=== PATIENT | female | born 1960 | race Caucasian/White ===

== ENCOUNTER 2019-01-26 10:01 | Day surgery (SDC) | payer OTHER ==
[~2019-01-26] VITALS: Ht 154.9 cm; Wt 64.3 kg
[~2019-01-26 10:01] MED LIST: ASPI325EC PO; CARBAMAZEPINE100 MG PO; GUAI600T33 PO; LISI20 PO; ONDA4ODT MM; OXYB5 PO; OXYC5 PO; ZONI100 PO
--- NOTE | 2019-01-26 11:13 | NUR ---
PATIENT GAVE PERMISSION FOR ME TO CARE FOR HER TODAY 01/26/19. History, Chart, Medications and Allergies reviewed before start of procedure.Patient confirms NPO status and agrees with scheduled surgery. Lungs clear T/O to Auscultation.
--- NOTE | 2019-01-26 11:13 | NUR ---
STUDENT NURSE ASSISTING WITH PRE PROCEDURE CARE. AGREE WITH HER CHARTING AND CARE
--- NOTE | 2019-01-26 11:53 | NUR ---
01/26/19 1153 Snow Rai PATIENT DETERMINED TO BE ASA APPROPRIATE FOR PROPOFOL SEDATION PRIOR TO START OF PROCEDURE BY DR. PARK. 3-LEAD EKG REVIEWED WITH PHYSICIAN PRIOR TO START OF PROCEDURE. PATIENT CONFIRMS NPO STATUS AND AGREES WITH SCHEDULED PROCEDURE. History, Chart, Medications and Allergies reviewed before start of procedure. MONITOR INTACT WITH CONTINUOUS PULSE OXIMETRY AND INTERMITTENT BP. O2 VIA N/C INTACT THROUGHOUT SEDATION/PROCEDURE VIA POM MASK, 10 L. HURRICAINE SPRAY TO OROPHARYX, Bite Block Placed IMMEDIATELY PREPROCEDURE.
--- NOTE | 2019-01-26 12:40 | NUR ---
Discharge instructions reviewed with patient. Patient verbalizes understanding. Copy given to patient to take home. Discharged via wheelchair to private car for ride home. SCRIPT CALLED INTO [facility] IN [place]. BOTH PATEINT AND SPOUSE DENY COCERNS RELATED TO DISCHARGE
== END 2019-01-26 23:10 | disposition home or self-care (01) ==
LOC: ORSCMMR 10:01 → ORD 11:00 → ORSCMMR 23:10
PROVIDERS: Internal Medicine Gastroenterology
PROC: 0DB98ZX Excision of Duodenum, Via Natural or Artificial Opening Endoscopic, Diagnostic (ICD-10-PCS; principal; 2019-01-26 11:00)
PROC: 0DB68ZX Excision of Stomach, Via Natural or Artificial Opening Endoscopic, Diagnostic (ICD-10-PCS; principal; 2019-01-26 11:00)
PROC: 0DB58ZX Excision of Esophagus, Via Natural or Artificial Opening Endoscopic, Diagnostic (ICD-10-PCS; principal; 2019-01-26 11:00)
PROC: 0DB48ZX Excision of Esophagogastric Junction, Via Natural or Artificial Opening Endoscopic, Diagnostic (ICD-10-PCS; principal; 2019-01-26 11:00)
DX: R11.2 Nausea with vomiting, unspecified (principal); B37.81 Candidal esophagitis; K44.9 Diaphragmatic hernia without obstruction or gangrene; K29.70 Gastritis, unspecified, without bleeding; K29.80 Duodenitis without bleeding; R10.31 Right lower quadrant pain; G40.909 Epilepsy, unspecified, not intractable, without status epilepticus; I10 Essential (primary) hypertension; Z79.899 Other long term (current) drug therapy
CPT/HCPCS: 88305; 88312; 88342; J2704; J7120

== ENCOUNTER → 2019-04-21 | Outpatient (CLI) | payer OTHER ==
[2019-04-22 13:50] LABS: Stool Occult Bld Immuno 1 Negative (NEGATIVE)
== END ==
LOC: LAB 17:00 → LAB SHORT 17:00
PROVIDERS: Nurse Practitioner Family
DX: Z12.11 Encounter for screening for malignant neoplasm of colon (principal)
CPT/HCPCS: G0328

== ENCOUNTER 2019-06-25 09:00 | Day surgery (SDC) | payer OTHER ==
[~2019-06-25] VITALS: Ht 154.9 cm; Wt 60.9 kg
--- NOTE | 2019-06-25 09:34 | NUR ---
History, Chart, Medications and Allergies reviewed before start of procedure. Lungs clear T/O to Auscultation. Patient confirms NPO status and agrees with scheduled surgery. Pre-Op teaching done. Pt verbalizes understanding. Patient States Post-Procedure ride home has been arranged.
--- NOTE | 2019-06-25 10:18 | NUR ---
06/25/19 1018 Wing Crow PATIENT DETERMINED TO BE ASA APPROPRIATE FOR PROPOFOL SEDATION PRIOR TO START OF PROCEDURE BY . 3-LEAD EKG REVIEWED WITH PHYSICIAN PRIOR TO START OF PROCEDURE.PATIENT CONFIRMS NPO STATUS AND AGREES WITH SCHEDULED PROCEDURE.History, Chart, Medications and Allergies reviewed before start of procedure.MONITOR INTACT WITH CONTINUOUS PULSE OXIMETRY AND INTERMITTENT BP.O2 VIA N/C INTACT THROUGHOUT SEDATION/PROCEDURE.HURRICAINE SPRAY TO OROPHARYX.Bite Block Placed
--- NOTE | 2019-06-25 10:54 | NUR ---
Patient up to Ambulate independently. Gait steady. Discharge instructions reviewed with patient. Patient verbalizes understanding. Copy given to patient to take home. Patient States Post-Procedure ride home has been arranged. Discharged via wheelchair to private car for ride home.
== END 2019-06-25 11:04 | disposition home or self-care (01) ==
LOC: ORSCMMR 09:00 → ORD 10:00 → ORSCMMR 11:04
PROVIDERS: Internal Medicine Gastroenterology
PROC: 0DB68ZX Excision of Stomach, Via Natural or Artificial Opening Endoscopic, Diagnostic (ICD-10-PCS; principal; 2019-06-25 10:00)
PROC: 0DB48ZX Excision of Esophagogastric Junction, Via Natural or Artificial Opening Endoscopic, Diagnostic (ICD-10-PCS; principal; 2019-06-25 10:00)
PROC: 0DB58ZX Excision of Esophagus, Via Natural or Artificial Opening Endoscopic, Diagnostic (ICD-10-PCS; principal; 2019-06-25 10:00)
DX: B37.81 Candidal esophagitis (principal); R13.14 Dysphagia, pharyngoesophageal phase; R10.13 Epigastric pain; K21.9 Gastro-esophageal reflux disease without esophagitis; K44.9 Diaphragmatic hernia without obstruction or gangrene; K29.70 Gastritis, unspecified, without bleeding; I10 Essential (primary) hypertension; K31.84 Gastroparesis; G40.909 Epilepsy, unspecified, not intractable, without status epilepticus; Z79.899 Other long term (current) drug therapy
CPT/HCPCS: 88305; 88342; J2704; J7120

== ENCOUNTER 2019-08-18 08:46 | Observation (INO) | payer OTHER ==
[~2019-08-18] VITALS: Ht 152.4 cm; Wt 61.5 kg
[2019-08-18] MEDS ORDERED: FISH OIL 1,001000 MG PO (09:09)
[2019-08-18] MEDS ORDERED: Zantac150 MG (09:10)
[2019-08-18] MEDS ORDERED: Calcium Magnes1 EAC1 PO (09:10)
[2019-08-18] MEDS ORDERED: FAMO40 PO (09:11)
[2019-08-18] MEDS ORDERED: VITAMIN D31000 UNI3 PO (09:13)
[2019-08-18] MEDS ORDERED: ATOR20 PO (09:14)
[2019-08-18] MEDS ORDERED: Isosorbide Mono30 MG PO (09:15)
[2019-08-18] MEDS ORDERED: ASPI81CH PO ×2 (09:17→09:18)
--- NOTE | 2019-08-18 11:02 | NUR ---
PT TO BENEFITS COORDINATOR FOR CORONARY ANGIOGRAM. VSS. NAJERA.
--- NOTE | 2019-08-18 13:04 | NUR ---
PT BACK TO RECOVERY RM WITH R RADIAL TR BAND IN PLACE, 11CC OF AIR IN BAND- PLACED AT 1240. R FEMORAL [address] WITH ART LINE, TO BE PULLED ONCE ACT IS BELOW 180. VSS. NADN. BOTH SITES CLEAR. NO BLEEDING OR HEMATOMA NOTED. CALL LIGHT WITHIN REACH.
--- NOTE | 2019-08-18 14:10 | NUR ---
ACT OBTAINED FROM R FEMORAL SHEATH. CLOTTING TIME READ 208. WILL CONTINUE TO MONITOR PT AND RECHECK AGAIN BEFORE PULLING SHEATH. PT R RADIAL TR BAND REMAINS CLEAR. NO BLEEDING OR HEMATOMA NOTED FROM BOTH. PT RESTING COMFORTABLY, NADN. VSS. CALL LIGHT WITHIN REACH. FAMILY AT BEDSIDE
--- NOTE | 2019-08-18 14:38 | NUR ---
SBAR/REPORT GIVEN TO MARIIA CHANDRA PCU. PT RESTING COMFORTABLY. SITES REMAIN CLEAR. VSS. CALL LIGHT WITHIN REACH. FAMILY AT BEDSIDE.
--- NOTE | 2019-08-18 15:25 | NUR ---
R RADIAL REMAINS CLEAR. R FEMORAL SHEATH REMAINS IN PLACE. LAST ACT WAS 197 @ 1525. PT ASSISTED WITH BEDPAN. APPROX 200CC OF CLEAR URINE NOTED.
--- NOTE | 2019-08-18 16:38 | NUR ---
PT R FEMORAL SHEATH REMOVED. HEMOSTASIS AT 1635. PT TOLERATES WELL. R FEMORAL SITE CLEAR. NO BLEEDING OR HEMATOMA IN PLACE. VSS. NADN. R RADIAL TR BAND CLEAR.
--- NOTE | 2019-08-18 17:44 | NUR ---
PT ARRIVED VIA STRETCHER FROM DREDGE MATE; TRANSFERED W/ SLIDER SHEET; PT A&O; SPOUSE AND SON AT BEDSIDE; PT PLEASANT AND COMPLIANT W/ CARE; TR BAND TO R RADIAL SITE, SLIGHT DRIED BLOOD; FINGERS WARM AND O2 SATS>94 ON DIGITS; R FEMORAL SMALL DRIED BLOOD; VSS; PT ON RA; LUNG SOUNDS CLEAR T/O; CALL LIGHT IN REACH; BED IN LOWEST POSITION; WILL CONTINUE TO MONITOR UNTIL HAND OFF TO NOC RN.
--- NOTE | 2019-08-18 20:30 | NUR ---
TR BAND PRESENT TO THE RIGHT RADIAL SITE, PT DENIES PAIN/NUMNESS OR TINGLING TO EXTREMITY, CAP REFILL WNL, SMALL AMOUNT OF BRUISING NOTED AT THE PROXIMAL END OFTHE TR BAND, NO SIGN OF HEMATOMA, 2 ML OF AIR RELEASED AT A TIME OVER AN EXTENDED PERIOD TOTALING 6 ML'S. DAY SHIFT HAD REPORTED REMOVING 5 ML'S. ARM BOARD IS IN PLACE. PT EDUCATION PROVIDED AT THIS TIME. RIGHT GROIN SITE DRSG HAS A SMALL AMOUNT OF DRY RED DRAINAGE PRESENT, NO CHANGE PER DAY SHIFT RN AT [place], NO S/S HEMATOMA, WCTM , CIRC WNL.
--- NOTE | 2019-08-18 21:30 | NUR ---
TR BAND REMOVAL TR BAND WAS REMOVED WNL AT THIS TIME. NO S/S OF A HEMATOMA OR BLEEDING PRESENT. SMALL AMOUNT OF BRUISING, NO CHANGES NOTED FROM PREVIOUS ASSESSMENT. CIRC REMAINS WNL, PT DENIES PAIN, NUMBNESS OR TINGLING TO EXTREMITY. TEGADERM DRESSING WAS PLACED, ARM BOARD WAS ALSO REPLACED, PT EDUCATION PROVIDED. PT WAS ASSISTED OOB AT THIS TIME TO THE BSC, PT TOLERATED WITH NO PROBLEMS, GROIN SITE REMAINS UNCHANGED WITH MOVEMENT, PT REPORTS MILD TENDERNESS WITH MOVEMENT. DRSG INTACT. WCTM, CALL LIGHT IN REACH. VSS
--- NOTE | 2019-08-19 06:27 | NUR ---
SUMMARY NO ACUTE CHANGES THROUGH THE NIGHT. PT HAS BEEN SLEPT WITH NO PROBLEMS. BOTH THE RIGHT RADIAL AND R GROIN SITE REMAIN UNCHANGED FROM PREVIOUS ASSESSMENT. DRSG'S REMAIN DRY & INTACT. PT IS TOLERATING TRANSFERS TO BSC WITH NO PROBLEMS. VOIDING WNL. TOLERATING PO INTAKE. VSS. ON ROOM AIR. CALL LIGHT IN REACH
[2019-08-19] MEDS ORDERED: CLOP75 PO (10:04)
--- NOTE | 2019-08-19 11:19 | NUR ---
DISCHARGE INSTRUCTIONS GIVEN TO PT AND FAMILY. PROVIDED EDUCATION ON NEW MEDICATION PLAVIX AND HOME CATH SITE CARE. ALL QUESTIONS ANSWERED. BELONGINGS GATHERED AND GIVEN TO PT. PT WAS ESCORTED OUT VIA W/C BY LUMA SOSA.
== END 2019-08-19 11:32 | disposition home or self-care (01) ==
LOC: MHTC 08:46 → PCU 13:32
PROVIDERS: ADMIT Internal Medicine Interventional Cardiology
PROC: 4A023N7 Measurement of Cardiac Sampling and Pressure, Left Heart, Percutaneous Approach (ICD-10-PCS; principal; 2019-08-18)
PROC: B2111ZZ Fluoroscopy of Multiple Coronary Arteries using Low Osmolar Contrast (ICD-10-PCS; principal; 2019-08-18)
DX: I25.119 Atherosclerotic heart disease of native coronary artery with unspecified angina pectoris (principal); I10 Essential (primary) hypertension; G40.909 Epilepsy, unspecified, not intractable, without status epilepticus; J38.01 Paralysis of vocal cords and larynx, unilateral; Z90.710 Acquired absence of both cervix and uterus; Z96.652 Presence of left artificial knee joint; Z79.82 Long term (current) use of aspirin; Z79.899 Other long term (current) drug therapy; Z88.0 Allergy status to penicillin
CPT/HCPCS: 76937; 85347; 92978; 93454; 96372; 99152; 99153; C1725; C1753; C1769; C1874; C1887; C1894; C9600; C9604; G0378; J1644; J2250; J3010; J7030; Q9967

== ENCOUNTER → 2021-01-16 | Outpatient (CLI) | payer OTHER ==
[~2021-01-16] MED LIST changes: +ASPI81CH PO; +ATOR20 PO; +CLOP75 PO; +Calcium Magnes1 EAC1 PO; +FAMO40 PO; +FISH OIL 1,001000 MG PO; +Isosorbide Mono30 MG PO; +VITAMIN D31000 UNI3 PO; +Zantac150 MG
[2021-01-20 09:57] LABS: Stool Occult Bld Immuno 1 Negative (NEGATIVE)
== END | disposition home or self-care (01) ==
LOC: LAB SHORT 17:15
PROVIDERS: Student in an Organized Health Care Education/Training Program
DX: Z12.11 Encounter for screening for malignant neoplasm of colon (principal)
CPT/HCPCS: G0328

== ENCOUNTER 2021-03-10 09:27 | Day surgery (SDC) | payer OTHER ==
[~2021-03-10] VITALS: Ht 152.4 cm; Wt 64.5 kg
[~2021-03-10 09:27] MED LIST changes: +Acetaminophen325 M1 PO; +VITAMIN D310 MC4 PO; -VITAMIN D31000 UNI3 PO
--- NOTE | 2021-03-10 11:24 | NUR ---
PATIENT UP OOB WALKING IN THE [place]. WAITING TO GO TO THE CATHLAB PRIOR TO PROCEDURE.
--- NOTE | 2021-03-10 12:09 | NUR ---
PATIENTS' AT THE BEDSIDE.
--- NOTE | 2021-03-10 13:21 | NUR ---
1305 PATIENT WALKED INTO THE LAB FOR PROCEDURE.
--- NOTE | 2021-03-10 14:27 | NUR ---
DR. TEAGUE PREVIOUSLY TO BEDSIDE TO DISCUSS RESULTS WITH PT AND . PT REPOSITIONED ON GURNEY WITH HOB RAISED TO 15 DEGREES. RIGHT GROIN SITE SOFT NON TENDER WITH NO ACTIVE BLEEDING OR OOZING. TEGADERM C/D/I. WILL CONTINUE TO MONITOR.
--- NOTE | 2021-03-10 14:50 | NUR ---
RIGHT GROIN SITE REMAINS SOFT NON TENDER WITH NO BLEEDING OR OOZING. HOB RAISED TO 30 DEGREES, WILL CONTINUE TO MONITOR. BILATERAL DP/PT 2+ PULSES PRESENT SKIN P/W/D. AT BEDSIDE, CALL LIGHT IN REACH.
--- NOTE | 2021-03-10 15:04 | NUR ---
PT ASSISTED ON AND OFF BEDPAN, RIGHT GROIN SITE REMAINS STABLE.
--- NOTE | 2021-03-10 16:33 | NUR ---
16[facility]. [facility]UE REVEISED HIS ORDER FOR 4 HOURS OF BEDREST TO 3 HOURS OF BEDREST. RIGHT GROIN STABLE. PATIENT HAD A BOWEL MOVEMENT AND VOIDED. GROIN STABLE.
--- NOTE | 2021-03-10 16:43 | NUR ---
PATIENT PIV TO THE LEFT HAND REMVOED AND PRESSURE DRESSING APPLIED.
--- NOTE | 2021-03-10 16:44 | NUR ---
REVEIWED WITH THE DISCHARGE INSTRUCTIONS AND ALL SIGNED. NO FURTHER QUESTIONS. COPIES GIVEN IN PATIENT FOLDER.
--- NOTE | 2021-03-10 17:05 | NUR ---
PATIENT FULLY DRESSED AND ALL BELONGINGS GATHERED. OUT TO GET CAR TO MEET AT THE [place] ENTRANCE. PATIENT DISCHARGED VIA WHEELCHAIR WITH DISCHARGE INSTRUCTIONS AND FOLLOW UP APPOINTMENT IN HAND.
== END 2021-03-10 17:15 | disposition home or self-care (01) ==
LOC: MHTC 09:27
PROC: B2111ZZ Fluoroscopy of Multiple Coronary Arteries using Low Osmolar Contrast (ICD-10-PCS; principal; 2021-03-10)
DX: T82.855A Stenosis of coronary artery stent, initial encounter (principal); I25.118 Atherosclerotic heart disease of native coronary artery with other forms of angina pectoris; I10 Essential (primary) hypertension; Z88.0 Allergy status to penicillin; Z79.82 Long term (current) use of aspirin; Z79.899 Other long term (current) drug therapy
CPT/HCPCS: 76937; 93454; 99152; A9270; C1760; C1769; C1894; J0360; J1644; J2250; J3010; J7030; J7050; Q9967

== ENCOUNTER → 2021-10-10 | Outpatient (CLI) | payer OTHER | END | disposition home or self-care (01) | LOC: LAB SHORT 15:40 | DX: R30.0 Dysuria (principal) | CPT/HCPCS: 87086 ==

== ENCOUNTER → 2024-04-20 | Outpatient (CLI) | payer OTHER ==
[2024-04-20 14:31] LABS: Source, Urine Clean Catch
[2024-04-20 15:22] LABS: Appearance, Urine Hazy (Clear); Bilirubin, Urine Neg (Neg); Blood, Urine 1+ (Neg); Glucose Qualitative, Urine 4+ (Neg); Ketones, Urine Neg (Neg); Leukocyte Esterase, Urine 3+ (Neg); Nitrite, Urine Neg (Neg); Protein, Urine Neg (Neg); Urobilinogen, Urine NORM (Normal)
[2024-04-20 15:35] LABS: Bacteria Many /hpf; Color, Urine Pale Yellow (P-Yellow); Red Blood Cells, Urine 0-2 /hpf (0-2); Squamous Epithelial Cells Few /hpf (Few); White Blood Cells, Urine 50-100 /hpf (0-5)
[2024-04-20 15:36] LABS: Amorphous Light (0-Heavy)
== END | disposition home or self-care (01) ==
LOC: LAB SHORT 14:29 → LAB 14:29
PROVIDERS: Student in an Organized Health Care Education/Training Program
DX: R33.9 Retention of urine, unspecified (principal)
CPT/HCPCS: 81001; 87077; 87086; 87186

== ENCOUNTER → 2024-08-04 | Outpatient (CLI) | payer OTHER ==
[~2024-08-04] MED LIST changes: +CALCIUM-MAGNES1 EAC9; +CENTRUM WOMEN1 EAC2; +ESTRADIOL 0.01%; +FARXIGA5 MG PO; +IBUP200; +Loratadine10 MG; +NITR.4SL SL; +PANTOPRAZOLE SO2010 PO; +ROSUVASTATIN CAL5 MG PO; +Vitamin D1000 UNI1 PO
[2024-08-04 14:28] LABS: Source, Urine Clean Catch
[2024-08-04 16:39] LABS: Appearance, Urine Clear (Clear); Bilirubin, Urine Neg (Neg); Blood, Urine Neg (Neg); Glucose Qualitative, Urine 3+ (Neg); Ketones, Urine Neg (Neg); Leukocyte Esterase, Urine 1+ (Neg); Nitrite, Urine Neg (Neg); Protein, Urine Neg (Neg); Specific Gravity, Urine 1.005 (1.003-1.022); Urobilinogen, Urine NORM (Normal)
[2024-08-04 16:48] LABS: Color, Urine Pale Yellow (P-Yellow)
[2024-08-04 16:50] LABS: Bacteria Many /hpf; Red Blood Cells, Urine 0-2 /hpf (0-2); Squamous Epithelial Cells Rare /hpf (Few); Transitional Epithelial Cells Rare /hpf (0-Rare)
== END ==
LOC: LAB SHORT 14:26 → LAB 14:26
PROVIDERS: Student in an Organized Health Care Education/Training Program
DX: R33.9 Retention of urine, unspecified (principal)
CPT/HCPCS: 81001; 87077; 87086; 87186

== ENCOUNTER 2024-08-11 06:10 | Day surgery (SDC) | payer OTHER ==
[~2024-08-11] VITALS: Ht 152.4 cm; Wt 61.0 kg
[~2024-08-11 06:10] MED LIST changes: +Balanced Salt Epinephrine Irrigation Solution 500 mL IR SCH; -CALCIUM-MAGNES1 EAC9; -CENTRUM WOMEN1 EAC2; -ESTRADIOL 0.01%; -FARXIGA5 MG PO; -IBUP200; +Lidocaine HCl/Pf 1% 5 ML VIAL XX SCH; -Loratadine10 MG; +Moxifloxacin HCL 0.5 MG/0.1 ML 0.4MLSYR LEFTEYE SCH; -NITR.4SL SL; -PANTOPRAZOLE SO2010 PO; +PHENYLEPHRINE\\TROPICAMIDE\\TETRACAINE OPHTHALMIC DILATING SOLN LEFTEYE PRN; +Povidone-Iodine 450 DROP/30 ML Solution LEFTEYE SCH; +Povidone-Iodine 450 DROP/30 ML Solution ONE; -ROSUVASTATIN CAL5 MG PO; +Tetracaine HCl/Pf 0.5% Opth Soln 4 ml ONE; -Vitamin D1000 UNI1 PO
[2024-08-11] MEDS ORDERED: ROSUVASTATIN CAL5 MG PO (06:33)
[2024-08-11] MEDS ORDERED: PANTOPRAZOLE SO2010 PO (06:36)
[2024-08-11] MEDS ORDERED: FARXIGA5 MG PO (06:37)
[2024-08-11] MEDS ORDERED: Vitamin D1000 UNI1 PO (06:38)
[2024-08-11] MEDS ORDERED: CALCIUM-MAGNES1 EAC9 (06:40)
[2024-08-11] MEDS ORDERED: ESTRADIOL 0.01% (06:41)
[2024-08-11] MEDS ORDERED: Loratadine10 MG (06:42)
[2024-08-11] MEDS ORDERED: CENTRUM WOMEN1 EAC2 (06:42)
[2024-08-11] MEDS ORDERED: IBUP200 (06:43)
[2024-08-11] MEDS ORDERED: GUAI600T33 PO (06:43)
[2024-08-11] MEDS ORDERED: NITR.4SL SL (06:44)
[2024-08-11] MEDS ORDERED: Midazolam HCl 1MG / ML 2ML Vial ONE (07:28)
[2024-08-11] MEDS ORDERED: FentaNYL Citrate 50 MCG/ML 2 ML Injection ONE (07:28)
[2024-08-11] MEDS ORDERED: Moxifloxacin HCL 0.5 MG/0.1 ML 0.4MLSYR LEFTEYE ONE (07:37)
[2024-08-11] MEDS ORDERED: Ondansetron 4 MG SoluTab ONE (08:12)
[2024-08-11] MEDS ORDERED: Scopolamine Hydrobromide Patch ONE (08:36)
[2024-08-11 09:36] VITALS: BP 161/83
--- NOTE | 2024-08-11 09:51 | NUR ---
08/11/24 0951 Juan Sosa PT REPORTED NAUSEA FOLLOWING IV REMOVAL. SHE VOMITED SMALL AMOUNTS X3 IN SDU. OBDULIA MONTES CONSULTED, AND PT WAS MEDICATED WITH ODT ZOFFRAN AND SCOPOLAMINE PATCH (SEE EMAR). PT WAS EDUCATED REGARDING SCOPE PATCH INCLUDING HANDLING INSTRUCTIONS, USE OF GLOVES, HAND WASHING, AND REMOVAL WITHIN 72 HOURS. INSTRUCTIONS PROVIDED IN WRITING WELL. PT WAS ALSO GIVEN SPRITE AND SALTINE CRACKERS. PT REPORTED NAUSEA WAS IMPROVING DURING STAY IN SDU BUT NOT COMPLETELY RESOLVED. OBDULIA MONTES CONSULTED AGAIN REGARDING PT'S CONDITION AND CBG RESULTS. PER OBDULIA MONTES INSTRUCTIONS, PT WAS GIVEN CHOICE TO RETURN HOME OR HAVE NEW IV STARTED TO RECIEVE FLUIDS AND IV ANTIEMETIC. PT CHOSE TO RETURN HOME. SHE WAS INSTRUCTED TO CONTACT DR. WILLARD IF NAUSEA DOES NOT RESOLVE.
== END 2024-08-11 09:10 | disposition home or self-care (01) ==
LOC: ORSCSDS 06:10
PROVIDERS: Student in an Organized Health Care Education/Training Program
PROC: 08RK3JZ Replacement of Left Lens with Synthetic Substitute, Percutaneous Approach (ICD-10-PCS; principal; 2024-08-11 07:30)
DX: H25.813 Combined forms of age-related cataract, bilateral (principal); I10 Essential (primary) hypertension; E78.5 Hyperlipidemia, unspecified; I25.10 Atherosclerotic heart disease of native coronary artery without angina pectoris; R56.9 Unspecified convulsions; K31.84 Gastroparesis; H05.402 Unspecified enophthalmos, left eye; H52.13 Myopia, bilateral; Z79.82 Long term (current) use of aspirin; Z79.899 Other long term (current) drug therapy
CPT/HCPCS: 82947; A9270; J2250; J3010; V2632

== ENCOUNTER 2024-08-25 06:09 | Day surgery (SDC) | payer OTHER ==
[~2024-08-25] VITALS: Ht 152.4 cm; Wt 60.9 kg
[~2024-08-25 06:09] MED LIST changes: +CALCIUM-MAGNES1 EAC9; +CENTRUM WOMEN1 EAC2; +ESTRADIOL 0.01%; +FARXIGA5 MG PO; +IBUP200; +Loratadine10 MG; -Moxifloxacin HCL 0.5 MG/0.1 ML 0.4MLSYR LEFTEYE SCH; +Moxifloxacin HCL 0.5 MG/0.1 ML 0.4MLSYR RIGHTEYE SCH; +NITR.4SL SL; +PANTOPRAZOLE SO2010 PO; -PHENYLEPHRINE\\TROPICAMIDE\\TETRACAINE OPHTHALMIC DILATING SOLN LEFTEYE PRN; +PHENYLEPHRINE\\TROPICAMIDE\\TETRACAINE OPHTHALMIC DILATING SOLN RIGHTEYE PRN; -Povidone-Iodine 450 DROP/30 ML Solution LEFTEYE SCH; +Povidone-Iodine 450 DROP/30 ML Solution RIGHTEYE SCH; +ROSUVASTATIN CAL5 MG PO; +Vitamin D1000 UNI1 PO
[2024-08-25] MEDS ORDERED: Lidocaine HCl/Pf 1% 5 ML VIAL ONE (06:36)
[2024-08-25] MEDS ORDERED: Midazolam HCl 1MG / ML 2ML Vial ONE (07:22)
[2024-08-25] MEDS ORDERED: Ondansetron HCl 2 MG / ML 2ML Vial ONE (07:25)
[2024-08-25] MEDS ORDERED: Dexamethasone Sod Phos 10 MG/ML 1ML VIAL ONE (07:25)
[2024-08-25] MEDS ORDERED: Balanced Salt Epinephrine Irrigation Solution 500 mL IR ONE (07:35)
[2024-08-25] MEDS ORDERED: Moxifloxacin HCL 0.5 MG/0.1 ML 0.4MLSYR RIGHTEYE ONE (07:35)
[2024-08-25 07:50] VITALS: BP 121/66
== END 2024-08-25 07:57 | disposition home or self-care (01) ==
LOC: ORSCSDS 06:09
PROVIDERS: Student in an Organized Health Care Education/Training Program
PROC: 08RJ3JZ Replacement of Right Lens with Synthetic Substitute, Percutaneous Approach (ICD-10-PCS; principal; 2024-08-25 07:30)
DX: H25.811 Combined forms of age-related cataract, right eye (principal); Z96.1 Presence of intraocular lens; I10 Essential (primary) hypertension; I25.10 Atherosclerotic heart disease of native coronary artery without angina pectoris; R56.9 Unspecified convulsions; Z79.899 Other long term (current) drug therapy
CPT/HCPCS: J1100; J2003; J2250; J2405; V2632

== ENCOUNTER 2025-06-10 15:09 | Inpatient (IN) | payer OTHER ==
[~2025-06-10] VITALS: Ht 152.4 cm; Wt 64.3 kg
[~2025-06-10 15:09] MED LIST changes: -Balanced Salt Epinephrine Irrigation Solution 500 mL IR SCH; -Lidocaine HCl/Pf 1% 5 ML VIAL XX SCH; -Moxifloxacin HCL 0.5 MG/0.1 ML 0.4MLSYR RIGHTEYE SCH; -PHENYLEPHRINE\\TROPICAMIDE\\TETRACAINE OPHTHALMIC DILATING SOLN RIGHTEYE PRN; -Povidone-Iodine 450 DROP/30 ML Solution ONE; -Povidone-Iodine 450 DROP/30 ML Solution RIGHTEYE SCH; -Tetracaine HCl/Pf 0.5% Opth Soln 4 ml ONE
[2025-06-10 15:47] LABS: BASOPHILS ABSOLUTE AUTO 0.04 K/mm3 (0.00-0.23); BASOPHILS PERCENT AUTO 1 % (0-2); EOSINOPHILS ABSOLUTE AUTO 0.24 K/mm3 (0.00-0.68); EOSINOPHILS PERCENT AUTO 3 % (0-6); Hematocrit 38.3 % (33.0-51.0); Hemoglobin 13.0 g/dL (11.5-16.0); IMMATURE GRAN ABSOLUTE AUTO 0.01 K/mm3 (0.00-0.10); IMMATURE GRAN PERCENT AUTO 0 % (0-1); LYMPHOCYTES ABSOLUTE AUTO 1.99 K/mm3 (0.84-5.20); LYMPHOCYTES PERCENT AUTO 28 % (21-46); MONOCYTES ABSOLUTE AUTO 0.63 K/mm3 (0.16-1.47); MONOCYTES PERCENT AUTO 9 % (4-13); Mean Corpuscular HGB Conc 33.9 g/dL (31.5-36.5); Mean Corpuscular Volume 93 fL (80-100); NEUTROPHILS ABSOLUTE AUTO 4.30 K/mm3 (1.96-9.15); NEUTROPHILS PERCENT AUTO 60 % (41-73); NRBC ABSOLUTE 0.00 K/mm3 (0.00-0.02); NRBC Auto 0.0 /100 WBC (0.0-0.2); Platelet Count 246 K/mm3 (150-400); RDW Coefficient Variation 13.6 % (11.7-14.2); RDW Standard Deviation 46.1 fL (35.1-46.3)
[2025-06-10 15:50] LABS: Alanine Aminotransfer (ALT/SGP 24.0 U/L (12-78); Albumin, Blood 4.0 g/dL (3.4-5.0); Albumin/Globulin Ratio 1.2 (0.8-1.8); Anion Gap 10.0 mmol/L (3-11); Aspartate Aminotrans (AST/SGOT 20.0 U/L (12-37); Bilirubin, Total 0.3 mg/dL (0.1-1.0); Blood Urea Nitrogen 16.0 mg/dL (8-24); CO2, Blood 21.0 mmol/L (21-32); Calcium, Blood 9.1 mg/dL (8.5-10.1); Chloride, Blood 106.0 mmol/L (98-108); Creatinine, Blood 0.99 mg/dL (0.40-1.00); Globulin, Blood 3.4 g/dL (2.2-4.0); Glucose, Blood 88.0 mg/dL (70-99); Potassium, Blood 4.3 mmol/L (3.5-5.5); Sodium, Blood 133.0 mmol/L (136-145); Total Protein, Blood 7.4 g/dL (6.4-8.2)
[2025-06-10] MEDS ORDERED: Nitroglycerin 1 INCH/GM PKT TOP ONE (20:15)
[2025-06-10] MEDS ORDERED: Morphine Sulfate 10 MG/ML 1MLSYR IV PRN (20:15)
[2025-06-10] MEDS ORDERED: MELATONIN5 M1 PO (20:24)
[2025-06-10] MEDS ORDERED: Dose Adjust by Pharmacy XX STA (20:44)
[2025-06-10] MEDS ORDERED: Heparin Sodium 5000 Units/ML 1ML MDV IV ONE (20:45)
[2025-06-10] MEDS ORDERED: Heparin Sodium,Porcine/0.5 NS 500 ML IV SCH (21:00)
[2025-06-10 21:12] LABS: Anti-Xa UFH, PHA Monitoring <0.10 IU/mL; Prothrombin Time Results 11.1 Sec (9.7-11.5)
[2025-06-10] MEDS ORDERED: Ondansetron HCl 2 MG / ML 2ML Vial IV PRN (21:40)
[2025-06-10] MEDS ORDERED: NS 1,000 ML IV SCH (21:40)
[2025-06-10 22:02] LABS: Source, Urine Clean Catch
[2025-06-10] MEDS ORDERED: Morphine Sulfate 4 MG/1 ML Injection IV PRN (22:20)
[2025-06-10 22:21] LABS: Bilirubin, Urine Neg (Neg); Glucose Qualitative, Urine 3+ (Neg); Ketones, Urine Neg (Neg); Leukocyte Esterase, Urine 3+ (Neg); Protein, Urine Neg (Neg); Specific Gravity, Urine 1.010 (1.003-1.022); Urobilinogen, Urine NORM (Normal)
[2025-06-10 22:28] LABS: Color, Urine Pale Yellow (P-Yellow)
[2025-06-10 22:29] LABS: Red Blood Cells, Urine 0-2 /hpf (0-2); White Blood Cells, Urine 25-50 /hpf (0-5)
[2025-06-10 23:18] VITALS: BP 142/76
[2025-06-10 23:20] VITALS: BP 142/76
[2025-06-11] VITALS (16 sets, daily range): BP systolic 77–144; BP diastolic 45–116
[2025-06-11] MEDS ORDERED: CefTRIAXone Sodium 1,000 MG in NS 100 ML IV SCH (02:47)
[2025-06-11 04:05] LABS: BASOPHILS ABSOLUTE AUTO 0.03 K/mm3 (0.00-0.23); BASOPHILS PERCENT AUTO 1 % (0-2); EOSINOPHILS ABSOLUTE AUTO 0.19 K/mm3 (0.00-0.68); EOSINOPHILS PERCENT AUTO 3 % (0-6); Hematocrit 28.2 % (33.0-51.0); Hemoglobin 9.4 g/dL (11.5-16.0); IMMATURE GRAN ABSOLUTE AUTO 0.01 K/mm3 (0.00-0.10); IMMATURE GRAN PERCENT AUTO 0 % (0-1); LYMPHOCYTES ABSOLUTE AUTO 1.13 K/mm3 (0.84-5.20); LYMPHOCYTES PERCENT AUTO 17 % (21-46); MONOCYTES ABSOLUTE AUTO 0.55 K/mm3 (0.16-1.47); MONOCYTES PERCENT AUTO 8 % (4-13); Mean Corpuscular HGB Conc 33.3 g/dL (31.5-36.5); Mean Corpuscular Volume 95 fL (80-100); NEUTROPHILS ABSOLUTE AUTO 4.62 K/mm3 (1.96-9.15); NEUTROPHILS PERCENT AUTO 71 % (41-73); NRBC ABSOLUTE 0.00 K/mm3 (0.00-0.02); NRBC Auto 0.0 /100 WBC (0.0-0.2); Platelet Count 160 K/mm3 (150-400); RDW Coefficient Variation 13.5 % (11.7-14.2); RDW Standard Deviation 47.0 fL (35.1-46.3)
[2025-06-11] MEDS ORDERED: Dose Adjust by Pharmacy XX STA (04:34)
[2025-06-11 06:00] LABS: Magnesium, Blood 2.2 mg/dL (1.6-2.4)
[2025-06-11 06:04] LABS: Alanine Aminotransfer (ALT/SGP 18.0 U/L (12-78); Albumin, Blood 3.6 g/dL (3.4-5.0); Albumin/Globulin Ratio 1.2 (0.8-1.8); Anion Gap 10.0 mmol/L (3-11); Aspartate Aminotrans (AST/SGOT 14.0 U/L (12-37); Bilirubin, Total 0.4 mg/dL (0.1-1.0); Blood Urea Nitrogen 15.0 mg/dL (8-24); CO2, Blood 23.0 mmol/L (21-32); Chloride, Blood 108.0 mmol/L (98-108); Creatinine, Blood 0.88 mg/dL (0.40-1.00); Globulin, Blood 3.0 g/dL (2.2-4.0); Glucose, Blood 126.0 mg/dL (70-99); Potassium, Blood 4.0 mmol/L (3.5-5.5); Sodium, Blood 137.0 mmol/L (136-145)
[2025-06-11 06:27] LABS: Calcium, Blood 8.8 mg/dL (8.5-10.1); Total Protein, Blood 6.6 g/dL (6.4-8.2)
--- NOTE | 2025-06-11 06:31 | NUR ---
SHIFT SUMMARY: PT A&OX4 CALM AND COOPERATIVE. BP STABLE. SB-SR 50S-70S. MAINTAINING >92% ON RA. DENIES SOB. PT REPORTS IMPROVEMENT OF CHEST PAIN. MULTIPLE CRITICAL TROPS RECEIVED. RESIDENT NOTIFIED AND ORDERED TO CONTINUE TO DRAW. TROP PEAKED AT 1784. MOST RECENT TROP 1222. CMP REDRAW D/T DIFFERENCES IN LABS AND CRITICAL CALCIUM LEVEL OF 5.6. REDRAW SHOWED CALCIUM OF 8.8. 1 PERSON ASSIST TO BSC. PT REPORTS PAIN UPON URINATION. RECEIVING IV ABX. HEPARIN RUNNING @ 13U/KG/HR. NS @ 100ML/HR. NPO SINCE MIDNIGHT. AT BEDSIDE. MED REC COMPLETED WITH PATIENT. BED IS LOW AND LOCKED. CALL LIGHT WITHIN REACH. CONTINUE WITH CURRENT PLAN OF CARE.
--- NOTE | 2025-06-11 07:45 | NUR ---
[facility] ABOUT CONCERNS OF A DROP IN HGB FROM 13.0 TO 9.4, HCT FROM 38.3 TO 28.2, PLT FROM 246 TO 160 IN A 12 HOUR PERIOD. MD NOTIFIED THAT RECENT LABS WERE A REDRAW DUE TO ABNORMAL VALUES DURING THE NIGHT AND TAHT THE LABS CONTINUE TO BE SHOWING THE DROP IN ABOVE LABS. NOTIFIED THAT NO REPORT OF ACTIVE BLEEDING WAS REPORTED FROM NOC RN AND NO SIGNS AWARE AT THIS TIME. PT IS RECIEVING HEP GTT PER ORDER. TO ORDER H&H FOR 0900 AND GUAIAC STOOL.
[2025-06-11 08:06] LABS: CHOL/HDL RATIO 1.8; Cholesterol 154 mg/dL (50-200); HDL Cholesterol 86 mg/dL (>39); LDL/HDL RATIO 0.6; Low Density Lipoprotein Chol 56 mg/dL (0-110); Triglycerides 62 mg/dL (30-160); Very Low Density Lipoprot Chol 12 mg/dL (6-32)
[2025-06-11] MEDS ORDERED: Nitroglycerin 2 MG/20 ML BTL ONE (08:58)
[2025-06-11] MEDS ORDERED: NS 1,000 ML IV ONE ×2 (08:58→09:17)
[2025-06-11] MEDS ORDERED: Heparin Sodium 1000 Units/ML 10ML MDV ONE (08:58)
[2025-06-11] MEDS ORDERED: Verapamil HCL 2.5 MG/ML 2ML Injection ONE (08:58)
[2025-06-11] MEDS ORDERED: NS 250 ML IV ONE (08:58)
[2025-06-11] MEDS ORDERED: NiCARdipine HCL 1,000 MCG/5 ML SYR ONE (08:59)
[2025-06-11] MEDS ORDERED: Isosorbide Mononitrate 30 MG TABCR PO SCH (09:00)
[2025-06-11 09:03] LABS: Hematocrit 43.6 % (33.0-51.0); Hemoglobin 14.2 g/dL (11.5-16.0); Mean Corpuscular HGB Conc 32.6 g/dL (31.5-36.5); Mean Corpuscular Volume 95 fL (80-100); NRBC ABSOLUTE 0.00 K/mm3 (0.00-0.02); NRBC Auto 0.0 /100 WBC (0.0-0.2); Platelet Count 240 K/mm3 (150-400); RDW Coefficient Variation 13.7 % (11.7-14.2); RDW Standard Deviation 47.5 fL (35.1-46.3)
--- NOTE | 2025-06-11 09:08 | NUR ---
[address] REGISTRY OFFICER TO PT ROOM. CONSENT FOR ANGIO DISCUSSED AND SIGNED BY PT. AWAITING ECHO. COURT REGISTRY OFFICER NOTIFIED OF DROP IN H&H, REDRAW HAS ALREADY BEEN ORDERED.
[2025-06-11] MEDS ORDERED: FentaNYL Citrate 50 MCG/ML 2 ML Injection ONE (09:16)
[2025-06-11] MEDS ORDERED: Midazolam HCl 1MG / ML 2ML Vial ONE (09:16)
--- NOTE | 2025-06-11 09:20 | NUR ---
PT DOWN FOR ANGIO. HEP GTT ON STOPPED AT THIS TIME. PHARMACY NOTIFIED OF HEP GTT.
[2025-06-11] MEDS ORDERED: NS 1,000 ML IV SCH (10:15)
--- NOTE | 2025-06-11 12:17 | NUR ---
PT ARRIVED FROM DIRECTOR FOOD SAFETY AT 1015. PT IN SUPINE POSITION. REPORT RECIEVED FROM DIRECTOR FOOD SAFETY RN AT BEDSIDE. PT WITH A RIGHT GROIN SITE FOR PROCEDURE. GROIN SITE NONTENDER, WITH NO HEMATOMA OR BLEEDING NOTED. PT INSTRUCTED TO LAY FLAT AND NOTIFY STAFF IF BLEEDING OF ANY KIND OCCURS AT GROIN SITE. PT VEBALLIZED UNDERSTANDING. VSS. CALL LIGHT IN REACH.
--- NOTE | 2025-06-11 17:46 | NUR ---
SHIFT SUMMARY PT A/OX4 AND COOPERATIVE OF CARE. PT ABLE TO EXPRESS NEEDS AND CALLED APPROPIATE. PT VSS THROUGHOUT SHIFT WITH O2 SATS IN TAWNY 90'S ON RA. PT ENDORSED CHEST PRESSURE FOR ENTIRE SHIFT, 4/10 PAIN LEVEL. PT DOWN FOR ANGIO TODAY, SEE CALIBRATION LABORATORY TECHNICIAN NOTES. PT R GROIN SITE WITHOUT SWELLING, HEMATOMA, BUT HAS SOME SLIGHT TENDERNESS TO THE AREA. PT HEP GTT STOPPED AFTER PROCEDURE PER ORDERS. PT ABLE TO AMBULATE TO BATHROOM USING FWW, TOLERATED WELL. NO REPORT OF SOB/DYSPNEA THROUGHOUT SHIFT. FAMILY PRESENT FOR MAJORITY OF SHIFT AND UPDATED ON PLAN OF CARE.
--- NOTE | 2025-06-11 19:32 | NUR ---
ASSUMPTION OF CARE ASSUMED PT'S CARE AT 1900,BEDSIDE REPORT COMPLETED.PT WIDE AWAKE,LYING IN BED.PLAN OF CARE REVIEWED.RIGHT GROIN ACCESS SITE ASSESSES,NO SWELLING OR HEMATOMA NOTED.PT REPORTS TENDERNESS WITH PALPATION AND PAIN ON THE RIGHT UPPER INNER THIGH.DOT SIZE DRIED BLOOD NOTED AT THE SITE ACCESS SITE.PT DENIES PAIN,DENIES NUMBNESS/TINGLING,DENIES NAUSEA,DENIES NEEDS AT THIS TIME.CALL LIGHT AND PT'S ITEMS WITHIN REACH,BED ALARM ON.MONITORING ONGING PER CAREPLAN.
[2025-06-11] MEDS ORDERED: Zonisamide 100 MG CAP PO SCH (21:00)
--- NOTE | 2025-06-12 00:10 | NUR ---
MD NOTIFICATION DR.JAVIER SeguraNOTIFIED OF PT'S LOW BPS,PT ASYMPTOMATIC.PT RECEIVED BP MED ORDERED AT HS. STATES TO MONITOR PT AND PLACED ORDERS OF PARAMETERS FOR BP MEDS ADMINISTRATION
[2025-06-12 03:41] VITALS: BP 86/53
[2025-06-12 03:59] LABS: Hematocrit 36.0 % (33.0-51.0); Hemoglobin 12.1 g/dL (11.5-16.0); Mean Corpuscular HGB Conc 33.6 g/dL (31.5-36.5); Mean Corpuscular Volume 92 fL (80-100); NRBC ABSOLUTE 0.00 K/mm3 (0.00-0.02); NRBC Auto 0.0 /100 WBC (0.0-0.2); Platelet Count 230 K/mm3 (150-400); RDW Coefficient Variation 13.7 % (11.7-14.2); RDW Standard Deviation 46.3 fL (35.1-46.3)
[2025-06-12 04:16] LABS: Anion Gap 8.0 mmol/L (3-11); Blood Urea Nitrogen 25.0 mg/dL (8-24); CO2, Blood 22.0 mmol/L (21-32); Calcium, Blood 8.3 mg/dL (8.5-10.1); Chloride, Blood 109.0 mmol/L (98-108); Creatinine, Blood 1.23 mg/dL (0.40-1.00); Glucose, Blood 111.0 mg/dL (70-99); Potassium, Blood 3.9 mmol/L (3.5-5.5); Sodium, Blood 135.0 mmol/L (136-145)
--- NOTE | 2025-06-12 06:30 | NUR ---
PT MONITORED DURING THE SHIFT.BP SOFT ,SOME WITH MAP <60.PT ASYMPTOMATIC.RESIDENT NOTIFIED. MD ORDERED BP MEDICATION ADMINISTRATION PARAMETERS.PT AWAKE AT THIS TIME,DENIES CHEST PAIN,DENIES NEEDS.GROIN ANGIOGRAM ACCESS SITE REMAINED UNCHANGED FROM THE INTITAL ASSESSMENT.CALL LIOGHT AND PT'S ITEMS WITHIN REACH.MONITORING ONGOING PER CAREPLAN.
[2025-06-12 08:02] VITALS: BP 112/66
[2025-06-12 11:53] VITALS: BP 116/98
[2025-06-12] MEDS ORDERED: CEFD300 PO (13:16)
--- NOTE | 2025-06-12 13:42 | NUR ---
PT IS A&Ox4 AND ABLE TO MAKE NEEDS KNOWN. SHE IS ON RA W/O2 SATS > 92%. SHE USES A FWW FOR AMBULATION AND IS A SBA. NO C/O CHEST PAIN OR PRESSURE OR SOB. IN ROOM VISITING. PT DISCHARGING HOME W/ AND ALL PERSONAL BELONGINGS.
== END 2025-06-12 14:00 | disposition home or self-care (01) | DRG 281 ==
LOC: ER 15:09 → PCU 21:38 → EDBEDREQ 22:34 → PCU 22:59 → ENPENDDIS 06-12 12:58 → PCU 06-12 14:00
PROVIDERS: Emergency Medicine; Family Medicine; Internal Medicine Cardiovascular Disease; Nurse Practitioner Acute Care; Student in an Organized Health Care Education/Training Program; ADMIT Internal Medicine
PROC: B2111ZZ Fluoroscopy of Multiple Coronary Arteries using Low Osmolar Contrast (ICD-10-PCS; principal; 2025-06-11)
PROC: 4A023N7 Measurement of Cardiac Sampling and Pressure, Left Heart, Percutaneous Approach (ICD-10-PCS; 2025-06-11)
DX: T82.855A Stenosis of coronary artery stent, initial encounter (principal); E87.1 Hypo-osmolality and hyponatremia; I21.A1 Myocardial infarction type 2; N39.0 Urinary tract infection, site not specified; R71.0 Precipitous drop in hematocrit; I25.10 Atherosclerotic heart disease of native coronary artery without angina pectoris; I25.5 Ischemic cardiomyopathy; G89.4 Chronic pain syndrome; E78.5 Hyperlipidemia, unspecified; I10 Essential (primary) hypertension; Y84.8 Other medical procedures as the cause of abnormal reaction of the patient, or of later complication, without mention of misadventure at the time of the procedure; I25.2 Old myocardial infarction; Z88.0 Allergy status to penicillin; Z79.82 Long term (current) use of aspirin; Z79.899 Other long term (current) drug therapy; Z90.710 Acquired absence of both cervix and uterus
CPT/HCPCS: 36415; 71046; 76937; 80048; 80053; 80061; 81001; 83735; 84484; 85025; 85027; 85520; 85610; 87077; 87086; 87186; 93005; 93010; 93454; 99152; 99285-25; A9270; C1760; C1769; C1894; C8929; J0696; J1644; J2250; J2270; J2470; J3010; J7030; J7050; Q9957; Q9967

== ENCOUNTER → 2025-08-17 | Outpatient (CLI) | payer OTHER ==
[~2025-08-17] MED LIST changes: +CEFD300 PO; +MELATONIN5 M1 PO
[2025-08-17 17:55] LABS: BASOPHILS ABSOLUTE AUTO 0.03 K/mm3 (0.00-0.23); BASOPHILS PERCENT AUTO 1 % (0-2); EOSINOPHILS ABSOLUTE AUTO 0.16 K/mm3 (0.00-0.68); EOSINOPHILS PERCENT AUTO 3 % (0-6); Hematocrit 37.7 % (33.0-51.0); Hemoglobin 12.2 g/dL (11.5-16.0); IMMATURE GRAN ABSOLUTE AUTO 0.00 K/mm3 (0.00-0.10); IMMATURE GRAN PERCENT AUTO 0 % (0-1); LYMPHOCYTES ABSOLUTE AUTO 1.42 K/mm3 (0.84-5.20); LYMPHOCYTES PERCENT AUTO 26 % (21-46); MONOCYTES ABSOLUTE AUTO 0.53 K/mm3 (0.16-1.47); MONOCYTES PERCENT AUTO 10 % (4-13); Mean Corpuscular HGB Conc 32.4 g/dL (31.5-36.5); Mean Corpuscular Volume 96 fL (80-100); NEUTROPHILS ABSOLUTE AUTO 3.26 K/mm3 (1.96-9.15); NEUTROPHILS PERCENT AUTO 60 % (41-73); NRBC ABSOLUTE 0.00 K/mm3 (0.00-0.02); NRBC Auto 0.0 /100 WBC (0.0-0.2); Platelet Count 253 K/mm3 (150-400); RDW Coefficient Variation 13.2 % (11.7-14.2); RDW Standard Deviation 46.8 fL (35.1-46.3)
[2025-08-17 19:21] LABS: Alanine Aminotransfer (ALT/SGP 25 U/L (12-78); Albumin, Blood 3.9 g/dL (3.4-5.0); Albumin/Globulin Ratio 1.3 (0.8-1.8); Anion Gap 8 mmol/L (3-11); Aspartate Aminotrans (AST/SGOT 17 U/L (12-37); Bilirubin, Total 0.3 mg/dL (0.1-1.0); Blood Urea Nitrogen 14 mg/dL (8-24); CHOL/HDL RATIO 2.1; CO2, Blood 23 mmol/L (21-32); Calcium, Blood 9.2 mg/dL (8.5-10.1); Chloride, Blood 109 mmol/L (98-108); Cholesterol 161 mg/dL (50-200); Creatinine, Blood 0.97 mg/dL (0.40-1.00); Globulin, Blood 3.1 g/dL (2.2-4.0); Glucose, Blood 88 mg/dL (70-99); HDL Cholesterol 76 mg/dL (>39); LDL/HDL RATIO 0.8; Low Density Lipoprotein Chol 62 mg/dL (0-110); Potassium, Blood 4.2 mmol/L (3.5-5.5); Sodium, Blood 136 mmol/L (136-145); Total Protein, Blood 7.0 g/dL (6.4-8.2); Triglycerides 114 mg/dL (30-160); Very Low Density Lipoprot Chol 22 mg/dL (6-32)
== END ==
LOC: LAB 16:27 → LAB SHORT 16:27
PROVIDERS: Student in an Organized Health Care Education/Training Program
DX: I11.0 Hypertensive heart disease with heart failure (principal); I50.9 Heart failure, unspecified; E78.2 Mixed hyperlipidemia; G40.909 Epilepsy, unspecified, not intractable, without status epilepticus; I21.4 Non-ST elevation (NSTEMI) myocardial infarction
CPT/HCPCS: 80053; 80061; 85025